=== PATIENT | female | born 1960 | race Caucasian/White ===

== ENCOUNTER → 2016-11-25 | Outpatient (CLI) | payer BC ==
--- NOTE | 2016-11-25 13:38 | KCIC ---
Bilateral lower extremity venous doppler ultrasound History: Leg pain and swelling, elevated d-dimer Comparison: None Findings: Multiple grayscale, color, and duplex spectral analysis sonographic images were acquired of the bilateral lower extremity veins to evaluate for the presence of DVT. There is normal phasicity. Normal compression, color-flow, and augmentation is demonstrated from the bilateral common femoral to the popliteal veins. There is normal color flow of the proximal profunda femoris veins. There is normal color flow of segments of the calf veins. Incidental note is made of right groin lymph node up to 2.4 x 0.8 x 1.9 cm. Impression: 1. There is no evidence of deep venous thrombosis from the bilateral common femoral to popliteal veins. 2. There is nonspecific right groin lymph node although not considered significantly enlarged by axial imaging criteria. Electronically signed by: Renan Grajeda MD (11/25/2016 1:35 PM) [facility]-[id number]
== END | disposition home or self-care (01) ==
LOC: KCIC US 12:19
PROVIDERS: ATTEND Internal Medicine
DX: M79.605 Pain in left leg (principal); M79.604 Pain in right leg; M79.89 Other specified soft tissue disorders
CPT/HCPCS: 93970

== ENCOUNTER → 2018-05-25 | Outpatient (CLI) | payer BC ==
[~2018-05-25] MED LIST: GLIP5TAB10 PO; INSU100I13 SQ; IOHEXOL 240 MG/ML 50ML VIAL. PO ONE; METF500T16 PO; WARF1TAB74 PO
--- NOTE | 2018-05-25 12:22 | KCIC ---
PQRS Compliance statement: One or more of the following individualized dose reduction techniques were utilized for this examination: 1. Automated exposure control. 2. Adjustment of the mA and/or kV according to patient size. 3. Use of iterative reconstruction technique. Indication:Right lower quadrant pain for a few weeks. History of ulcerative colitis. TECHNIQUE: CT abdomen and pelvis without IV contrast with multiplanar reformats. COMPARISON: 12/25/2011 FINDINGS: Limited evaluation of solid abdominal and pelvic organs due to lack of IV contrast. Heart is normal in size. No pericardial or pleural effusion. Clear base. Noncontrast appearance of the liver, spleen, gallbladder, pancreas, right adrenal within normal limits. Left adrenal adenoma measuring 2.5 x 2.5 cm, previously 2.2 x 1.9 cm. Simple cyst in the left kidney measuring 1.3 cm. No nephrolithiasis or hydronephrosis. No enlarged retroperitoneal or pelvic adenopathy. No free pelvic fluid or ascites. Status post hysterectomy. No bowel obstruction. Moderate diffuse colonic stool burden. Normal appendix. Terminal ileum within normal limits. Urinary bladder demonstrates no radiopaque stones. No suspicious bony lesion. IMPRESSION: Limited evaluation of solid abdominal and pelvic organs due to lack of IV contrast. 1. Normal appendix. No bowel obstruction. 2. Slight interval increase in the size of left adrenal adenoma. Electronically signed by: Remi Riggs DO (05/25/2018 12:19 PM) [id number]
== END | disposition home or self-care (01) ==
LOC: KCIC 10:24
PROVIDERS: ATTEND Internal Medicine
DX: D35.02 Benign neoplasm of left adrenal gland (principal); N28.1 Cyst of kidney, acquired; Z90.710 Acquired absence of both cervix and uterus
CPT/HCPCS: 74176; Q9966

== ENCOUNTER 2020-08-18 15:16 | Observation (INO) | payer BC ==
[~2020-08-18] VITALS: Ht 170.2 cm; Wt 115.4 kg
[~2020-08-18 15:16] MED LIST changes: -IOHEXOL 240 MG/ML 50ML VIAL. PO ONE; +WARF1TAB2 PO; -WARF1TAB74 PO
[2020-08-18 15:48] LABS: BASO # 0.1 x10^3/uL (0.0-0.2); BASO % 1 % (0-3); EOS # 0.5 x10^3/uL (0.0-0.7); EOS % 6 % (0-3); HEMATOCRIT 37.7 % (36.0-47.0); HEMOGLOBIN 13.1 g/dL (12.0-15.5); LYMPH # 2.4 x10^3/uL (1.0-4.8); LYMPH % 27 % (24-48); MEAN CORPUSCULAR HEMOGLOBIN 34 pg (25-35); MEAN CORPUSCULAR HGB CONC 35 g/dL (31-37); MEAN CORPUSCULAR VOLUME 97 fL (79-100); MONO # 0.6 x10^3/uL (0.0-1.1); MONO % 7 % (0-9); NEUT # 5.2 x10^3/uL (1.8-7.7); NEUT % 59 % (31-73); PLATELET COUNT 302 x10^3/uL (140-400); RED BLOOD COUNT 3.88 x10^6/uL (3.50-5.40); RED CELL DISTRIBUTION WIDTH 13.1 % (11.5-14.5); WHITE BLOOD COUNT 8.8 x10^3/uL (4.0-11.0)
--- NOTE | 2020-08-18 15:59 | RAD ---
XR CHEST 1V INDICATION: chest pain COMPARISON STUDY: None. FINDINGS: Lungs: Normal lung volume. No pulmonary mass or consolidation. The tracheobronchial tree and hilar st ructures are normal. Pleura: No pleural effusion or pneumothorax. Heart and Mediastinum: Cardiomegaly. The great vessels of the thorax are normal. IMPRESSION: No consolidation. Electronically signed by: Renan Campbell MD (08/18/2020 3:57 PM) [id number]
[2020-08-18 16:05] LABS: CALCIUM 9.1 mg/dL (8.5-10.1); CREATININE 0.7 mg/dL (0.6-1.0); GFR 85.6; POTASSIUM 4.6 mmol/L (3.5-5.1)
[2020-08-18 16:10] LABS: ALBUMIN 3.6 g/dL (3.4-5.0); ALBUMIN/GLOBULIN RATIO 0.9 (1.0-1.7); MAGNESIUM 1.8 mg/dL (1.8-2.4); TOTAL BILIRUBIN 0.5 mg/dL (0.2-1.0); TOTAL PROTEIN 7.7 g/dL (6.4-8.2)
--- NOTE | 2020-08-18 17:01 | EKG ---
[facility] [address] [place] [address] Test Date: 2020-08-18 Test Time: 15:24:57 Pat Name: KATE BARNHART Department: Room: Gender: F Merchant Banker: : 1960 Requested By: EDA ANTUNEZ Order Number: [id number] Reading MD: Leon Brennan Measurements Intervals [place] Rate: 92 P: 8 MO: 132 QRS: 11 QRSD: 74 T: 11 QT: 344 QTc: 430 Interpretive Statements SINUS RHYTHM NORMAL ECG Electronically Signed On 08-20-2020 15:07:28 CDT by Leon Brennan
--- NOTE | 2020-08-18 17:08 | EKG ---
[facility] [address] [place] [address] Test Date: 2020-08-18 Test Time: 15:49:39 Pat Name: KATE BARNHART Department: Room: Gender: F Printing Manager: : 1960 Requested By: LEVON DEMPSEY Order Number: [id number] Reading MD: Leon Brennan Measurements Intervals [place] Rate: 94 P: 2 AK: 140 QRS: 12 QRSD: 70 T: 8 QT: 348 QTc: 435 Interpretive Statements SINUS RHYTHM NORMAL ECG Electronically Signed On 08-20-2020 15:07:17 CDT by Leon Brennan
[2020-08-18 17:57] LABS: BILIRUBIN,URINE NEGATIVE (NEG); COLOR,URINE YELLOW; NITRITE,URINE NEGATIVE (NEG); PROTEIN,URINE NEGATIVE (NEG-TRACE); UROBILINOGEN,URINE 0.2 mg/dL (0.2 mg/dL)
[2020-08-18 18:08] LABS: CLARITY,URINE CLOUDY
[2020-08-18 18:09] LABS: BACTERIA,URINE MANY /HPF (0-FEW); RBC,URINE 20-40 /HPF (0-2)
[2020-08-18 18:10] LABS: WBC,URINE OCC /HPF (0-4)
[2020-08-18 18:24] LABS: D-DIMER 1.22 ug/mlFEU (0.00-0.50)
--- NOTE | 2020-08-18 19:44 | PDOC1 ---
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 She noted this began a little before noon today. She describes it as a sensation that she is falling downward on a rollercoaster and her stomach is rising. She denies any diaphoresis, vomiting, diarrhea, abdominal pain, fever, cough, or back pain. No recent sick contacts or travel. She quit smoking cigarettes 3 months ago and now uses tobacco vaporizer to "wean off" nicotine. She does note she has been having headaches recently, feels it is due to stress and nicotine withdrawal, no hx of seizures. She notes her broth and father both have HTN and AAA. She notes a normal cardiac stress test 10 years ago. Has never had a coronary angiogram. She follows with Dr. Dutta and has been compliant with her medications. 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 EKG at 1524 - appears to be sinus rhythm, rate 92bpm, normal axes, no ST segment or twave abnormalities EKG at 1549 - appears similar normal sinus rhythm rate 94bpm, , normal axes, no ST segment or twave abnormalities by my interpretation Chest radiograph with no acute abnormalities Labs with WBC 8.8, Hb 13.1, platelets 302, Na 141, K 4.6, BUN 13, Cr 0.7, glucose 99, CK 316, troponin 0, d dimer 1.22, INR 3.6 Admitted for further observation on telemetry to [facility]. Past Medical History Cardiovascular: HTN, Hyperlipidemia Pulmonary: Pulmonary embolus Endocrine: Diabetes Past Surgical History Past Surgical History: (x3), Hysterectomy Family History Family History: Coronary Artery Disease, Hypertension, Other (AAA) Social History Smoke: <1 pack per day (VAPES) ALCOHOL: rare Drugs: None Current Medications Current Medications Current Medications Magnesium Sulfate 50 ml @ 25 mls/hr 1X ONCE IV ; Start 08/18/20 at 19:45; Stop 08/18/20 at 21:44 Active Scripts Active Reported Metformin Hcl 500 Mg Tablet 500 Mg PO BIDWMEALS Glipizide 5 Mg Tablet 1 Tab PO BID Lantus Solostar (Insulin Glargine,Hum.rec.anlog) 100 Unit/1 Ml Insuln.pen 30 Unit SQ QHS Coumadin (Warfarin Sodium) 1 Mg Tablet 1 Mg PO DAILY Allergies Allergies: Coded Allergies: codeine (Verified Allergy, Intermediate, 05/25/18) ROS General: No: Chills, Night Sweats, Fatigue, Malaise, Appetite, Other PSYCHOLOGICAL ROS: YES: Concentration difficultie, Depression, Irritablity, Obsessive thoughts, Sleep disturbances; No: Anxiety, Behavioral Disorder, Decreased libido, Disorientation, Hallucinations, Hostility, Memory difficulties, Mood Swings, Physical abuse, Sexual abuse, Suicidal ideation, Other Eyes: No Blurry vision, No Decreased vision, No Double vision, No Dry eyes, No Excessive tearing, No Eye Pain, No Itchy Eyes, No Loss of vision, No Photophobia, No Scotomata, No Uses contacts, No Uses glasses, No Other HEENT: No: Heacaches, Visual Changes, Hearing change, Nasal congestion, Nasal discharge, Oral lesions, Sinus pain, Sore Throat, Epistaxis, Sneezing, Snoring, Tinnitus, Vertigo, Vocal changes, Other ALLERGY AND IMMUNOLOGY: No: Hives, Insect Bite Sensitivity, Itchy/Watery Eyes, Nasal Congestion, Post Nasal Drip, Seasonal Allergies, Other Hematological and Lymphatic: No: Bleeding Problems, Blood Clots, Blood Delgado sfusions, Brusing, Night Sweats, Pallor, Swollen Lymph Nodes, Other ENDOCRINE: No: Breast Changes, Galactorrhea, Hair Pattern Changes, Hot Flashes, Malaise/lethargy, Mood Swings, Palpitations, Polydipsia/polyuria, Skin Changes, Temperature Intolerance, Unexpected Weight Changes, Other Breast: No New/Changing Breast Lumps, No Nipple changes, No Nipple discharge, No Other Respiratory: No: Cough, Hemoptysis, Orthopnea, Pleuritic Pain, Shortness of breath, SOB with excertion, Sputum Changes, Stridor, Tachypnea, Wheezing, Other Cardiovascular: No Chest Pain, No Palpitations, No Orthopnea, No Paroxysmal Noc. Dyspnea, No Edema, No Lt Headedness, No Other Gastrointestinal: Yes Nausea; No Vomiting, No Abdominal Pain, No Diarrhea, No Constipation, No Melena, No H ematochezia, No Other Genitourinary: No Dysuria, No Frequency, No Incontinence, No Hematuria, No Retention, No Discharge, No Urgency, No Pain, No Flank Pain, No Other, No , No , No , No , No , No , No Musculoskeletal: No Gait Disturbance, No Joint Pain, No Joint Stiffness, No Joint Swelling, No Muscle Pain, No Muscular Weakness, No Pain In:, No Swelling In:, No Other Neurological: No Behavorial Changes, No Bowel/Bladder ControlChng, No Confu tresa, No Dizziness, No Gait Disturbance, No Headaches, No Impaired Coord/balance, No Memory Loss, No Numbness/Tingling, No Seizures, No Speech Problems, No Tremors, No Visual Changes, No Weakness, No Other Skin: No Dry Skin, No Eczema, No Hair Changes, No Lumps, No Mole Changes, No Mottling, No Nail Changes, No Pruritus, No Rash, No Skin Lesion Changes, No Oth er, No Acne Physical Exam General: Alert, Oriented X3, Cooperative, mild distress HEENT: Atraumatic, PERRLA, EOMI, Mucous membr. moist/pink Lungs: Clear to auscultation, Normal air movement Heart: S1S2, RRR, no thrills, no rubs, no gallops, no murmurs Abdomen: Normal bowel sounds, Soft, No tenderness, No hepatosplenomegaly, No masses Rectal Exam: not examined Extremities: No clubbing, No cyanosis, No edema, Normal pulses, No tenderness/swelling Skin: No rashes, No breakdown, No significant lesion Neuro: Normal gait, Normal speech, Strength at 5/5 X4 ext, Normal tone, Sensation intact, Cranial nerves 3-12 NL, Reflexes 2+ Psych/Mental Status: Mental status NL, Mood NL Vitals Vitals Vital Signs Date Time Temp Pulse Resp B/P (MAP) Pulse Ox O2 Delivery O2 Flow Rate FiO2 08/18/20 18:19 75 16 179/92 (121) 96 Room Air 08/18/20 15:16 98.7 98.7 Labs Labs Laboratory Tests Test 08/18/20 15:40 08/18/20 17:20 08/18/20 17:56 08/18/20 18:00 White Blood Count 8.8 x10^3/uL (4.0-11.0) Red Blood Count 3.88 x10^6/uL (3.50-5.40) Hemoglobin 13.1 g/dL (12.0-15.5) Hematocrit 37.7 % (36.0-47.0) Mean Corpuscular Volume 97 fL (79-100) Mean Corpuscular Hemoglobin 34 pg (25-35) Mean Corpuscular Hemoglobin Concent 35 g/dL (31-37) Red Cell Distribution Width 13.1 % (11.5-14.5) Platelet Count 302 x10^3/uL (140-400) Neutrophils (%) (Auto) 59 % (31-73) Lymphocytes (%) (Auto) 27 % (24-48) Monocytes (%) (Auto) 7 % (0-9) Eosinophils (%) (Auto) 6 % (0-3) Basophils (%) (Auto) 1 % (0-3) Neutrophils # (Auto) 5.2 x10^3/uL (1.8-7.7) Lymphocytes # (Auto) 2.4 x10^3/uL (1.0-4.8) Monocytes # (Auto) 0.6 x10^3/uL (0.0-1.1) Eosinophils # (Auto) 0.5 x10^3/uL (0.0-0.7) Basophils # (Auto) 0.1 x10^3/uL (0.0-0.2) Sodium Level 141 mmol/L (136-145) Potassium Level 4.6 mmol/L (3.5-5.1) Chloride Level 105 mmol/L (98-107) Carbon Dioxide Level 24 mmol/L (21-32) Anion Gap 12 (6-14) Blood Urea Nitrogen 13 mg/dL (7-20) Creatinine 0.7 mg/dL (0.6-1.0) Estimated GFR (Cockcroft-Gault) 85.6 BUN/Creatinine Ratio 19 (6-20) Glucose Level 99 mg/dL (70-99) Calcium Level 9.1 mg/dL (8.5-10.1) Magnesium Level 1.8 mg/dL (1.8-2.4) Total Bilirubin 0.5 mg/dL (0.2-1.0) Aspartate Amino Transf (AST/SGOT) 26 U/L (15-37) Alanine Aminotransferase (ALT/SGPT) 24 U/L (14-59) Alkaline Phosphatase 86 U/L (46-116) Creatine Kinase 316 U/L (26-192) Creatine Kinase MB (Mass) 1.5 ng/mL (0.0-3.6) Creatine Kinase MB Relative Index 0.5 % (0-4) Troponin I Quantitative < 0.017 ng/mL (0.000-0.055) < 0.017 ng/mL (0.000-0.055) Total Protein 7.7 g/dL (6.4-8.2) Albumin 3.6 g/dL (3.4-5.0) Albumin/Globulin Ratio 0.9 (1.0-1.7) Lipase 347 U/L (73-393) Urine Color Yellow Urine Clarity Cloudy Urine pH 6.0 (<5.0-8.0) Urine Specific [place] 1.015 (1.000-1.030) Urine Protein Negative mg/dL (NEG-TRACE) Urine Glucose (UA) Negative mg/dL (NEG) Urine Ketones (Stick) Negative mg/dL (NEG) Urine Blood Large (NEG) Urine Nitrite Negative (NEG) Urine Bilirubin Negative (NEG) Urine Urobilinogen Dipstick 0.2 mg/dL (0.2 mg/dL) Urine Leukocyte Esterase Trace (NEG) Urine RBC 20-40 /HPF (0-2) Urine WBC Occ /HPF (0-4) Urine Squamous Epithelial Cells Many /LPF Urine Bacteria Many /HPF (0-FEW) Urine Mucus Mod /LPF Prothrombin Time 36.0 SEC (11.7-14.0) Prothromb Time International Ratio 3.6 (0.8-1.1) D-Dimer (Jen) 1.22 ug/mlFEU (0.00-0.50) Laboratory Tests Test 08/18/20 15:40 08/18/20 17:20 08/18/20 17:56 08/18/20 18:00 White Blood Count 8.8 x10^3/uL (4.0-11.0) Red Blood Count 3.88 x10^6/uL (3.50-5.40) Hemoglobin 13.1 g/dL (12.0-15.5) Hematocrit 37.7 % (36.0-47.0) Mean Corpuscular Volume 97 fL (79-100) Mean Corpuscular Hemoglobin 34 pg (25-35) Mean Corpuscular Hemoglobin Concent 35 g/dL (31-37) Red Cell Distribution Width 13.1 % (11.5-14.5) Platelet Count 302 x10^3/uL (140-400) Neutrophils (%) (Auto) 59 % (31-73) Lymphocytes (%) (Auto) 27 % (24-48) Monocytes (%) (Auto) 7 % (0-9) Eosinophils (%) (Auto) 6 % (0-3) Basophils (%) (Auto) 1 % (0-3) Neutrophils # (Auto) 5.2 x10^3/uL (1.8-7.7) Lymphocytes # (Auto) 2.4 x10^3/uL (1.0-4.8) Monocytes # (Auto) 0.6 x10^3/uL (0.0-1.1) Eosinophils # (Auto) 0.5 x10^3/uL (0.0-0.7) Basophils # (Auto) 0.1 x10^3/uL (0.0-0.2) Sodium Level 141 mmol/L (136-145) Potassium Level 4.6 mmol/L (3.5-5.1) Chloride Level 105 mmol/L (98-107) Carbon Dioxide Level 24 mmol/L (21-32) Anion Gap 12 (6-14) Blood Urea Nitrogen 13 mg/dL (7-20) Creatinine 0.7 mg/dL (0.6-1.0) Estimated GFR (Cockcroft-Gault) 85.6 BUN/Creatinine Ratio 19 (6-20) Glucose Level 99 mg/dL (70-99) Calcium Level 9.1 mg/dL (8.5-10.1) Magnesium Level 1.8 mg/dL (1.8-2.4) Total Bilirubin 0.5 mg/dL (0.2-1.0) Aspartate Amino Transf (AST/SGOT) 26 U/L (15-37) Alanine Aminotransferase (ALT/SGPT) 24 U/L (14-59) Alkaline Phosphatase 86 U/L (46-116) Creatine Kinase 316 U/L (26-192) Creatine Kinase MB (Mass) 1.5 ng/mL (0.0-3.6) Creatine Kinase MB Relative Index 0.5 % (0-4) Troponin I Quantitative < 0.017 ng/mL (0.000-0.055) < 0.017 ng/mL (0.000-0.055) Total Protein 7.7 g/dL (6.4-8.2) Albumin 3.6 g/dL (3.4-5.0) Albumin/Globulin Ratio 0.9 (1.0-1.7) Lipase 347 U/L (73-393) Urine Color Yellow Urine Clarity Cloudy Urine pH 6.0 (<5.0-8.0) Urine Specific [place] 1.015 (1.000-1.030) Urine Protein Negative mg/dL (NEG-TRACE) Urine Glucose (UA) Negative mg/dL (NEG) Urine Ketones (Stick) Negative mg/dL (NEG) Urine Blood Large (NEG) Urine Nitrite Negative (NEG) Urine Bilirubin Negative (NEG) Urine Urobilinogen Dipstick 0.2 mg/dL (0.2 mg/dL) Urine Leukocyte Esterase Trace (NEG) Urine RBC 20-40 /HPF (0-2) Urine WBC Occ /HPF (0-4) Urine Squamous Epithelial Cells Many /LPF Urine Bacteria Many /HPF (0-FEW) Urine Mucus Mod /LPF Prothrombin Time 36.0 SEC (11.7-14.0) Prothromb Time International Ratio 3.6 (0.8-1.1) D-Dimer (Jen) 1.22 ug/mlFEU (0.00-0.50) Images Images Chest radiograph: Lungs: Normal lung volume. No pulmonary mass or consolidation. The tracheobronchial tree and hilar structures are normal. Pleura: No pleural effusion or pneumothorax. Heart and Mediastinum: Cardiomegaly. The great vessels of the thorax are normal. IMPRESSION: No consolidation. VTE Prophylaxis Ordered VTE Prophylaxis Devices: No VTE Pharmacological Prophylaxi: Yes Assessment/Plan Assessment/Plan A/P: Chest pressure - described as epigastric rising sensation. Likely GERD/dyspepsia, but with her cardiac risk factors needs to r/o ACS. ASA and NTG given Headaches - long standing on flexeril. With epigastric rising sensation would be concerning for atypical epilepsy presentation, but no history. Likely tension headache due to life stressors. Cont flexeril, gabapentin, they are helping HLD - cont statin HTN - cont meds DM2 with neuropathy - cont lantus, sliding scale, hold metformin in the event contrast may be necessary. 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 Will monitor FEN- ADA diet, npo after midnight PPX - heparin, pepcid CODE - FULL Dispo - observation for chest pain, atypical with high risk ACS Justifications for Admission Other Justification PATRICE ORTIZ MD August 18, 2020 19:44
[2020-08-18] MEDS ORDERED: MAGNESIUM SULFATE 2GM 50 ML IV ONE (19:45)
[2020-08-18 20:10] VITALS: BP 176/88
[2020-08-18] MEDS ORDERED: INSU100I13 SQ ×2 (20:29)
[2020-08-18] MEDS ORDERED: CRESTOR40 MG PO (20:29)
[2020-08-18] MEDS ORDERED: GABA300C18 PO ×2 (20:29)
[2020-08-18] MEDS ORDERED: DULA0.75 SQ (20:29)
[2020-08-18] MEDS ORDERED: WARF10TA40 PO (20:29)
[2020-08-18] MEDS ORDERED: CYCL10TA2 PO (20:29)
[2020-08-18] MEDS ORDERED: ACETAMINOPHEN 325 MG TABLET. PO PRN (20:45)
[2020-08-18] MEDS ORDERED: ONDANSETRON PF 4 MG/2 ML VIAL. IVP PRN (20:45)
[2020-08-18] MEDS ORDERED: NITROGLYCERIN SUBLINGUAL 0.4 MG BOTTLE OF 25. SL PRN (20:45)
[2020-08-18] MEDS ORDERED: INSULIN GLARGINE SYRINGE. SQ SCH (21:00)
[2020-08-18] MEDS ORDERED: ATORVASTATIN CALCIUM 40 MG TABLET. PO SCH (21:00)
[2020-08-18] MEDS ORDERED: GABAPENTIN 300 MG CAPSULE. PO SCH (21:00)
[2020-08-18] MEDS ORDERED: FAMOTIDINE 20 MG TABLET. PO SCH (21:00)
[2020-08-18] MEDS ORDERED: CYCLOBENZAPRINE 10 MG TABLET. PO SCH (21:00)
[2020-08-18] MEDS ORDERED: WARFARIN SODIUM 10 MG PO SCH (21:00)
[2020-08-18] MEDS ORDERED: ASPIRIN 325 MG TABLET PO ONE (21:30)
--- NOTE | 2020-08-18 21:31 | NUR ---
Pharmacy Warfarin Dosing Note S:Pharmacy consulted to assist with anticoagulation therapy started with target INR: 2 -3 O:KATE BARNHART is a 59 year old F with DVT/PE HX BILATERAL DVT/PE LABS: Last INR: 3.6 Last HGB: 13.1 Last HCT: 37.7 Last PLT: 302 Last dose of given on at Previous Regimen: 10 MG/D Vitamin K given: Drug Interaction Changes: Ongoing Drug Interactions: A:INR of 3.6 is above desired range. Target range for this patient is: 2 -3 P: Warfarin dose: Hold Now Bridge Therapy: Next INR due TOMORROW. Pharmacy anticoagulation service will continue to follow. [place] [facility], 08/18/20 [id number]
--- NOTE | 2020-08-18 22:38 | NUR ---
patient arrived to unit at approx 1999 accompanied by ED RN. No complaints of pain at this time. assessment complete. resting comfortably on RA. Pt upset that she has to stay the night. 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 oriented patient to unit. bed in low locked position, call light in reach, reminded patient to call for assistance when needed. Will continue to monitor.
[2020-08-18 22:40] VITALS: BP 120/60
--- NOTE | 2020-08-18 22:59 | ED.ADGEN ---
Past Medical History Past Medical History: Diabetes-Type II, High Cholesterol Additional Past Medical Histor: neuropathy, DVT, PEs, Past Surgical History: (X3), Hysterectomy Smoking Status: Current Every Day Smoker (Vapes daily, quit smoking cigarettes in April 2020) Alcohol Use: Occasionally Drug Use: None General Adult EDM: Chief Complaint: CHEST PAIN HPI: HPI: Patient is a 59 year old female, accompanied by her , who presents emergency department with complaints of intermittent pressure in her chest with shortness of breath that is followed by nausea, weakness, brief vision loss and a sensation of her arms feeling heavy. Patient states she has been having brief episodes of the symptoms since noon today. She denies any diaphoresis, vomiting, diarrhea, abdominal pain, fever, cough, syncope, dizziness, palpitations, or back pain. Patient reports she takes Coumadin on a daily basis due to a previous history of DVTs and PEs. She denies any missed doses of Coumadin recently. She denies any headache, recent ill contacts, numbness, or tingling. Patient states that her brother and her father both due to aortic aneurysm ruptures. Patient denies any previous diagnosis of aortic aneurysm. She reports that recently she has noticed her urine is darker than usual, she attributed that to drinking less fluids than she used to. Patient states she quit smoking cigarettes 3 months ago and now vapes instead of smokes tobacco. She currently denies any discomfort, she states when the pressure comes up is a 2 out of 10 on the pain scale. Her medical history includes high cholesterol, type 2 diabetes, and neuropathy in addition to the blood clots. Review of Systems: Review of Systems: Complete ROS is negative unless otherwise noted in HPI. Allergies: Allergies: Allergies Coded Allergies Type Severity Reaction Last Updated Verified codeine Allergy Intermediate 05/25/18 Yes Physical Exam: PE: See Above Constitutional: Well developed, well nourished, no acute distress, non-toxic ap pearance, obese, appears anxious. [] HENT: Normocephalic, atraumatic, bilateral external ears normal, nose normal. [] Eyes: PERRLA, EOMI, conjunctiva normal, no discharge. [] Neck: Normal range of motion, no stridor. [] Cardiovascular:Heart rate regular rhythm Lungs & Thorax: Respirations even and unlabored, no retractions, no respiratory distress Abdomen: soft, no tenderness, no rebound tenderness, no guarding, no palpable mass Skin: Warm, dry, no erythema, no rash. [] Extremities: No cyanosis, ROM intact, no edema. [] Neurologic: Alert and oriented X 3, normal motor, normal sensory, no focal deficits noted. [] Psychologic: Affect anxious Judgement normal, mood normal. [] Current Patient Data: Labs: Laboratory Tests Test 08/18/20 15:40 08/18/20 17:20 White Blood Count 8.8 x10^3/uL (4.0-11.0) Red Blood Count 3.88 x10^6/uL (3.50-5.40) Hemoglobin 13.1 g/dL (12.0-15.5) Hematocrit 37.7 % (36.0-47.0) Mean Corpuscular Volume 97 fL (79-100) Mean Corpuscular Hemoglobin 34 pg (25-35) Mean Corpuscular Hemoglobin Concent 35 g/dL (31-37) Red Cell Distribution Width 13.1 % (11.5-14.5) Platelet Count 302 x10^3/uL (140-400) Neutrophils (%) (Auto) 59 % (31-73) Lymphocytes (%) (Auto) 27 % (24-48) Monocytes (%) (Auto) 7 % (0-9) Eosinophils (%) (Auto) 6 % (0-3) H Basophils (%) (Auto) 1 % (0-3) Neutrophils # (Auto) 5.2 x10^3/uL (1.8-7.7) Lymphocytes # (Auto) 2.4 x10^3/uL (1.0-4.8) Monocytes # (Auto) 0.6 x10^3/uL (0.0-1.1) Eosinophils # (Auto) 0.5 x10^3/uL (0.0-0.7) Basophils # (Auto) 0.1 x10^3/uL (0.0-0.2) Sodium Level 141 mmol/L (136-145) Potassium Level 4.6 mmol/L (3.5-5.1) Chloride Level 105 mmol/L (98-107) Carbon Dioxide Level 24 mmol/L (21-32) Anion Gap 12 (6-14) Blood Urea Nitrogen 13 mg/dL (7-20) Creatinine 0.7 mg/dL (0.6-1.0) Estimated GFR (Cockcroft-Gault) 85.6 BUN/Creatinine Ratio 19 (6-20) Glucose Level 99 mg/dL (70-99) Calcium Level 9.1 mg/dL (8.5-10.1) Magnesium Level 1.8 mg/dL (1.8-2.4) Total Bilirubin 0.5 mg/dL (0.2-1.0) Aspartate Amino Transferase (AST) 26 U/L (15-37) Alanine Aminotransferase (ALT) 24 U/L (14-59) Alkaline Phosphatase 86 U/L (46-116) Creatine Kinase 316 U/L (26-192) H Creatine Kinase MB (Mass) 1.5 ng/mL (0.0-3.6) Creatine Kinase MB Relative Index 0.5 % (0-4) Troponin I Quantitative < 0.017 ng/mL (0.000-0.055) Total Protein 7.7 g/dL (6.4-8.2) Albumin 3.6 g/dL (3.4-5.0) Albumin/Globulin Ratio 0.9 (1.0-1.7) L Lipase 347 U/L (73-393) Urine Color Yellow Urine Clarity Cloudy Urine pH 6.0 (<5.0-8.0) Urine Specific [place] 1.015 (1.000-1.030) Urine Protein Negative mg/dL (NEG-TRACE) Urine Glucose (UA) Negative mg/dL (NEG) Urine Ketones (Stick) Negative mg/dL (NEG) Urine Blood Large (NEG) Urine Nitrite Negative (NEG) Urine Bilirubin Negative (NEG) Urine Urobilinogen Dipstick 0.2 mg/dL (0.2 mg/dL) Urine Leukocyte Esterase Trace (NEG) Urine RBC 20-40 /HPF (0-2) Urine WBC Occ /HPF (0-4) Urine Squamous Epithelial Cells Many /LPF Urine Bacteria Many /HPF (0-FEW) Urine Mucus Mod /LPF Laboratory Tests 08/18/20 15:40 Laboratory Tests 08/18/20 15:40 Vital Signs: Vital Signs Date Time Temp Pulse Resp B/P (MAP) Pulse Ox O2 Delivery O2 Flow Rate FiO2 08/18/20 17:19 82 16 174/103 (126) 96 Room Air 08/18/20 15:16 98.7 98.7 EKG: EK-sinus rhythm, rate 92, no STEMI, read by Dr. Rodriguez 1549-[id number] rhythm rate 94, no STEMI, read by Dr. Rodriguez [] Heart Score: C/O Chest Pain: Yes HEART Score for Chest Pain: HEART Score for Chest Pain Response (Comments) Value History Moderately Suspicious 1 ECG Normal 0 Age >45 - < 65 1 Risk Factors >3 Risk Factors or Hx CAD 2 Troponin < Normal Limit 0 Total 4 Risk Factors: Risk Factors: DM, Current or recent (<one month) smoker, HTN, HLP, family history of CAD, obesity. Risk Scores: Score 0 - 3: 2.5% MACE over next 6 weeks - Discharge Home Score 4 - 6: 20.3% MACE over next 6 weeks - Admit for Clinical Observation Score 7 - 10: 72.7% MACE over next 6 weeks - Early Invasive Strategies Radiology/Procedures: Radiology/Procedures: PROCEDURE: CHEST AP ONLY XR CHEST 1V INDICATION: chest pain COMPARISON STUDY: None. FINDINGS: Lungs: Normal lung volume. No pulmonary mass or consolidation. The tracheobronchial tree and hilar structures are normal. Pleura: No pleural effusion or pneumothorax. Heart and Mediastinum: Cardiomegaly. The great vessels of the thorax are normal. IMPRESSION: No consolidation. Electronically signed by: Renan Campbell MD (08/18/2020 3:57 PM) [id number] [] Course & Med Decision Making: Course & Med Decision Making Pertinent Labs and Imaging studies reviewed. (See chart for details) [id number] with Dr. Roy who is the admitting physician, and care was assumed following discussion of patient. Will admit patient as observation status for chest pain. Patient's vital signs stable. Patient remains afebrile, appears nontoxic, respirations even and unlabored. Patient will be admitted to the CVC floor. Patient's case and plan of care also discussed with Dr. Rodriguez [] Marcello Disclaimer: Marcello Disclaimer: This electronic medical record was generated, in whole or in part, using a voice recognition dictation system. Departure Departure Impression: Primary Impression: Chest pain Disposition: ADMITTED INPATIENT Condition: STABLE Referrals: ATA ARTHUR MD (PCP) EDA [employer] August 18, 2020 22:59
[2020-08-18] MEDS ORDERED: DEXTROSE 50% 25 GM / 50ML DISP.SYRIN. IV PRN (23:45)
[2020-08-18] MEDS ORDERED: ZOLPIDEM 5 MG TABLET. PO PRN (23:45)
[2020-08-19 02:45] VITALS: BP 118/66
[2020-08-19 07:00] VITALS: BP 118/67
[2020-08-19] MEDS ORDERED: INSULIN LISPRO 300 UNITS/3 ML VIAL. SQ SCH (08:00)
[2020-08-19] MEDS ORDERED: ASPIRIN 325 MG TABLET PO SCH (08:00)
[2020-08-19] MEDS ORDERED: GABAPENTIN 300 MG CAPSULE. PO SCH (09:00)
--- NOTE | 2020-08-19 09:26 | PDOC ---
PROGRESS NOTES Date of Service: DATE: 08/19/20 TIME: 09:25 Chief Complaint Chief Complaint VTE Prophylaxis Ordered VTE Prophylaxis Devices: No VTE Pharmacological Prophylaxi: Yes Assessment/Plan Assessment/Plan A/P: Chest pressure - described as epigastric rising sensation. Likely GERD/dyspepsia, but with her cardiac risk factors needs to r/o ACS. ASA and NTG given Headaches - long standing on flexeril. With epigastric rising sensation would be concerning for atypical epilepsy presentation, but no history. Likely tension headache due to life stressors. Cont flexeril, gabapentin, they are helping HLD - cont statin HTN - cont meds DM2 with neuropathy - cont lantus, sliding scale, hold metformin in the event contrast may be necessary. 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 Will monitor Current Every Day Smoker (Vapes daily, quit smoking cigarettes in April 2020) plan 08-19 FEN- ADA diet, npo after midnight PPX - heparin, pepcid CODE - FULL Dispo - observation for chest pain, atypical with high risk ACS fasting lipids cardiology consult patient refuses to stay to see Cardiology, until noon, INSISTS on leaving now, but agreees to call her PCP CAREN, WILL LEAVE AMA, her brother had CAD with stents d/c planning 34 min Justifications for Admission Justifications for Admission Other Justification History of Present Illness History of Present Illness Identification/Chief Complaint Chief Complaint Chest pain Source Source: Patient History of Present Illness History of Present Illness Ms Song is a 59 year old female w/ PMHx HLD, HTN, DM2 with neuropathy, prior LLE DVT and bilateral PE on warfarin presents to ED, accompanied by her , c/o intermittent pressure in her chest with shortness of breath that is followed by nausea, weakness, brief vision loss and a sensation of weakness. She noted this began a little before noon today. She describes it as a sensation that she is falling downward on a rollercoaster and her stomach is rising. She denies any diaphoresis, vomiting, diarrhea, abdominal pain, fever, cough, or back pain. No recent sick contacts or travel. She quit smoking cigarettes 3 months ago and now uses tobacco vaporizer to "wean off" nicotine. She does note she has been having headaches recently, feels it is due to stress and nicotine withdrawal, no hx of seizures. She notes her broth and father both have HTN and AAA. She notes a normal cardiac stress test 10 years ago. Has never had a coronary angiogram. She follows with Dr. Dutta and has been compliant with her medications. 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 EKG at 1524 - appears to be sinus rhythm, rate 92bpm, normal axes, no ST segment or twave abnormalities EKG at 1549 - appears similar normal sinus rhythm rate 94bpm, , normal axes, no ST segment or twave abnormalities by my interpretation Chest radiograph with no acute abnormalities Labs with WBC 8.8, Hb 13.1, platelets 302, Na 141, K 4.6, BUN 13, Cr 0.7, glucose 99, CK 316, troponin 0, d dimer 1.22, INR 3.6 Admitted for further observation on telemetry to [facility]. Past Medical History Cardiovascular: HTN, Hyperlipidemia Pulmonary: Pulmonary embolus Endocrine: Diabetes Past Surgical History Past Surgical History: (x3), Hysterectomy Family History Family History: Coronary Artery Disease, Hypertension, Other (AAA) Social History Smoke: <1 pack per day (VAPES) ALCOHOL: rare Drugs: None Current Medications Current Medications Current Medications Magnesium Sulfate 50 ml @ 25 mls/hr 1X ONCE IV ; Start 08/18/20 at 19:45; Stop 08/18/20 at 21:44 Active Scripts Active Reported Metformin Hcl 500 Mg Tablet 500 Mg PO BIDWMEALS Glipizide 5 Mg Tablet 1 Tab PO BID Lantus Solostar (Insulin Glargine,Hum.rec.anlog) 100 Unit/1 Ml Insuln.pen 30 Unit SQ QHS Coumadin (Warfarin Sodium) 1 Mg Tablet 1 Mg PO DAILY Allergies Allergies: Coded Allergies: codeine (Verified Allergy, Intermediate, 05/25/18) ROS General: No: Chills, Night Sweats, Fatigue, Malaise, Appetite, Other PSYCHOLOGICAL ROS: YES: Concentration difficultie, Depression, Irritablity, Obsessive thoughts, Sleep disturbances; No: Anxiety, Behavioral Disorder, Decreased libido, Disorientation, Hallu cinations, Hostility, Memory difficulties, Mood Swings, Physical abuse, Sexual abuse, Suicidal ideation, Other Eyes: No Blurry vision, No Decreased vision, No Double vision, No Dry eyes, No Excessive tearing, No Eye Pain, No Itchy Eyes, No Loss of vision, No Photophobia, No Scotomata, No Uses contacts, No Uses glasses, No Other HEENT: No: Heacaches, Visual Changes, Hearing change, Nasal congestion, Nasal discharge, Oral lesions, Sinus pain, Sore Throat, Epistaxis, Sneezing, Snoring, Tinnitus, Vertigo, Vocal changes, Other ALLERGY AND IMMUNOLOGY: No: Hives, Insect Bite Sensitivity, Itchy/Watery Eyes, Nasal Congestion, Post Nasal Drip, Seasonal Allergies, Other Hematological and Lymphatic: No: Bleeding Problems, Blood Clots, Blood Transfusions, Brusing, Night Sweats, Pallor, Swollen Lymph Nodes, Other ENDOCRINE: No: Breast Changes, Galactorrhea, Hair Pattern Changes, Hot Flashes, Malaise/lethargy, Mood Swings, Palpitations, Polydipsia/polyuria, Skin Changes, Temperature Intolerance, Unexpected Weight Changes, Other Breast: No New/Changing Breast Lumps, No Nipple changes, No Nipple discharge, No Other Respiratory: No: Cough, Hemoptysis, Orthopnea, Pleuritic Pain, Shortness of breath, SOB with excertion, Sputum Changes, Stridor, Tachypnea, Wheezing, Other Cardiovascular: No Chest Pain, No Palpitations, No Orthopnea, No Paroxysmal Noc. Dyspnea, No Edema, No Lt Headedness, No Other Gastrointestinal: Yes Nausea; No Vomiting, No Abdominal Pain, No Diarrhea, No Constipation, No Melena, No Hematochezia, No Other Genitourinary: No Dysuria, No Frequency, No Incontinence, No Hematuria, No Retention, No Discharge, No Urgency, No Pain, No Flank Pain, No Other, No , No , No , No , No , No , No Musculoskeletal: No Gait Disturbance, No Joint Pain, No Joint Stiffness, No Joint Swelling, No Muscle Pain, No Muscular Weakness, No Pain In:, No Swelling In:, No Other Neurological: No Behavorial Changes, No Bowel/Bladder ControlChng, No Confusion, No Dizziness, No Gait Disturbance, No Headaches, No Impaired Coord/balance, No Memory Loss, No Numbness/Tingling, No Seizures, No Speech Problems, No Tremors, No Visual Changes, No Weakness, No Other Skin: No Dry Skin, No Eczema, No Hair Changes, No Lumps, No Mole Changes, No Mottling, No Nail Changes, No Pruritus, No Rash, No Skin Lesion Changes, No Other, No Acne Vitals Vitals Vital Signs Date Time Temp Pulse Resp B/P (MAP) Pulse Ox O2 Delivery O2 Flow Rate FiO2 08/19/20 07:00 97.9 72 18 118/67 (84) 98 Room Air 97.9 Physical Exam General: Alert, Oriented X3, Cooperative, No acute distress Heart: Regular rate, No murmurs, Gallops Lungs: Clear Abdomen: Normal bowel sounds, Soft, No tenderness, No hepatosplenomegaly, No masses Extremities: No clubbing, No cyanosis, No edema, Normal pulses, No tenderness/swelling Skin: No rashes, No breakdown, No significant lesion Labs LABS PQRS Compliance statement: One or more of the following individualized dose reduction techniques were utilized for this examination: 1. Automated exposure control. 2. Adjustment of the mA and/or kV according to patient size. 3. Use of iterative reconstruction technique. Indication:Right lower quadrant pain for a few weeks. History of ulcerative colitis. TECHNIQUE: CT abdomen and pelvis without IV contrast with multiplanar reformats. COMPARISON: 12/25/2011 FINDINGS: Limited evaluation of solid abdominal and pelvic organs due to lack of IV contrast. Heart is normal in size. No pericardial or pleural effusion. Clear base. Noncontrast appearance of the liver, spleen, gallbladder, pancreas, right adrenal within normal limits. Left adrenal adenoma measuring 2.5 x 2.5 cm, previously 2.2 x 1.9 cm. Simple cyst in the left kidney measuring 1.3 cm. No nephrolithiasis or hydronephrosis. No enlarged retroperitoneal or pelvic adenopathy. No free pelvic fluid or ascites. Status post hysterectomy. No bowel obstruction. Moderate diffuse colonic stool burden. Normal appendix. Terminal ileum within normal limits. Urinary bladder demonstrates no radiopaque stones. No suspicious bony lesion. IMPRESSION: Limited evaluation of solid abdominal and pelvic organs due to lack of IV contrast. 1. Normal appendix. No bowel obstruction. 2. Slight interval increase in the size of left adrenal adenoma. Electronically signed by: Remi Riggs DO (05/25/2018 12:19 PM) [id number] DICTATED and SIGNED BY: REMI RIGGS DO DATE: 05/25/18 1214 XR CHEST 1V INDICATION: chest pain COMPARISON STUDY: None. FINDINGS: Lungs: Normal lung volume. No pulmonary mass or consolidation. The tracheobronchial tree and hilar structures are normal. Pleura: No pleural effusion or pneumothorax. Heart and Mediastinum: Cardiomegaly. The great vessels of the thorax are normal. IMPRESSION: No consolidation. Electronically signed by: Awilda Campbell MD (08/18/2020 3:57 PM) [id number] DICTATED and SIGNED BY: AWILDA CAMPBELL MD DATE: 08/18/20 [id number] Laboratory Tests Test 08/18/20 15:40 08/18/20 17:20 08/18/20 17:56 08/18/20 18:00 White Blood Count 8.8 x10^3/uL (4.0-11.0) Red Blood Count 3.88 x10^6/uL (3.50-5.40) Hemoglobin 13.1 g/dL (12.0-15.5) Hematocrit 37.7 % (36.0-47.0) Mean Corpuscular Volume 97 fL (79-100) Mean Corpuscular Hemoglobin 34 pg (25-35) Mean Corpuscular Hemoglobin Concent 35 g/dL (31-37) Red Cell Distribution Width 13.1 % (11.5-14.5) Platelet Count 302 x10^3/uL (140-400) Neutrophils (%) (Auto) 59 % (31-73) Lymphocytes (%) (Auto) 27 % (24-48) Monocytes (%) (Auto) 7 % (0-9) Eosinophils (%) (Auto) 6 % (0-3) Basophils (%) (Auto) 1 % (0-3) Neutrophils # (Auto) 5.2 x10^3/uL (1.8-7.7) Lymphocytes # (Auto) 2.4 x10^3/uL (1.0-4.8) Monocytes # (Auto) 0.6 x10^3/uL (0.0-1.1) Eosinophils # (Auto) 0.5 x10^3/uL (0.0-0.7) Basophils # (Auto) 0.1 x10^3/uL (0.0-0.2) Sodium Level 141 mmol/L (136-145) Potassium Level 4.6 mmol/L (3.5-5.1) Chloride Level 105 mmol/L (98-107) Carbon Dioxide Level 24 mmol/L (21-32) Anion Gap 12 (6-14) Blood Urea Nitrogen 13 mg/dL (7-20) Creatinine 0.7 mg/dL (0.6-1.0) Estimated GFR (Cockcroft-Gault) 85.6 BUN/Creatinine Ratio 19 (6-20) Glucose Level 99 mg/dL (70-99) Calcium Level 9.1 mg/dL (8.5-10.1) Magnesium Level 1.8 mg/dL (1.8-2.4) Total Bilirubin 0.5 mg/dL (0.2-1.0) Aspartate Amino Transf (AST/SGOT) 26 U/L (15-37) Alanine Aminotransferase (ALT/SGPT) 24 U/L (14-59) Alkaline Phosphatase 86 U/L (46-116) Creatine Kinase 316 U/L (26-192) Creatine Kinase MB (Mass) 1.5 ng/mL (0.0-3.6) Creatine Kinase MB Relative Index 0.5 % (0-4) Troponin I Quantitative < 0.017 ng/mL (0.000-0.055) < 0.017 ng/mL (0.000-0.055) Total Protein 7.7 g/dL (6.4-8.2) Albumin 3.6 g/dL (3.4-5.0) Albumin/Globulin Ratio 0.9 (1.0-1.7) Lipase 347 U/L (73-393) Urine Color Yellow Urine Clarity Cloudy Urine pH 6.0 (<5.0-8.0) Urine Specific [place] 1.015 (1.000-1.030) Urine Protein Negative mg/dL (NEG-TRACE) Urine Glucose (UA) Negative mg/dL (NEG) Urine Ketones (Stick) Negative mg/dL (NEG) Urine Blood Large (NEG) Urine Nitrite Negative (NEG) Urine Bilirubin Negative (NEG) Urine Urobilinogen Dipstick 0.2 mg/dL (0.2 mg/dL) Urine Leukocyte Esterase Trace (NEG) Urine RBC 20-40 /HPF (0-2) Urine WBC Occ /HPF (0-4) Urine Squamous Epithelial Cells Many /LPF Urine Bacteria Many /HPF (0-FEW) Urine Mucus Mod /LPF Prothrombin Time 36.0 SEC (11.7-14.0) Prothromb Time International Ratio 3.6 (0.8-1.1) D-Dimer (Jen) 1.22 ug/mlFEU (0.00-0.50) Test 08/18/20 21:25 08/19/20 00:40 08/19/20 07:28 Glucose (Fingerstick) 171 mg/dL (70-99) 126 mg/dL (70-99) Troponin I Quantitative < 0.017 ng/mL (0.000-0.055) Assessment and Plan Assessmemt and Plan Problems Medical Problems: (1) Chest pain Status: Acute Comment Review of Relevant I have reviewed the following items lorna (where applicable) has been applied. Labs Laboratory Tests Test 08/18/20 15:40 08/18/20 17:20 08/18/20 17:56 08/18/20 18:00 White Blood Count 8.8 x10^3/uL (4.0-11.0) Red Blood Count 3.88 x10^6/uL (3.50-5.40) Hemoglobin 13.1 g/dL (12.0-15.5) Hematocrit 37.7 % (36.0-47.0) Mean Corpuscular Volume 97 fL (79-100) Mean Corpuscular Hemoglobin 34 pg (25-35) Mean Corpuscular Hemoglobin Concent 35 g/dL (31-37) Red Cell Distribution Width 13.1 % (11.5-14.5) Platelet Count 302 x10^3/uL (140-400) Neutrophils (%) (Auto) 59 % (31-73) Lymphocytes (%) (Auto) 27 % (24-48) Monocytes (%) (Auto) 7 % (0-9) Eosinophils (%) (Auto) 6 % (0-3) Basophils (%) (Auto) 1 % (0-3) Neutrophils # (Auto) 5.2 x10^3/uL (1.8-7.7) Lymphocytes # (Auto) 2.4 x10^3/uL (1.0-4.8) Monocytes # (Auto) 0.6 x10^3/uL (0.0-1.1) Eosinophils # (Auto) 0.5 x10^3/uL (0.0-0.7) Basophils # (Auto) 0.1 x10^3/uL (0.0-0.2) Sodium Level 141 mmol/L (136-145) Potassium Level 4.6 mmol/L (3.5-5.1) Chloride Level 105 mmol/L (98-107) Carbon Dioxide Level 24 mmol/L (21-32) Anion Gap 12 (6-14) Blood Urea Nitrogen 13 mg/dL (7-20) Creatinine 0.7 mg/dL (0.6-1.0) Estimated GFR (Cockcroft-Gault) 85.6 BUN/Creatinine Ratio 19 (6-20) Glucose Level 99 mg/dL (70-99) Calcium Level 9.1 mg/dL (8.5-10.1) Magnesium Level 1.8 mg/dL (1.8-2.4) Total Bilirubin 0.5 mg/dL (0.2-1.0) Aspartate Amino Transf (AST/SGOT) 26 U/L (15-37) Alanine Aminotransferase (ALT/SGPT) 24 U/L (14-59) Alkaline Phosphatase 86 U/L (46-116) Creatine Kinase 316 U/L (26-192) Creatine Kinase MB (Mass) 1.5 ng/mL (0.0-3.6) Creatine Kinase MB Relative Index 0.5 % (0-4) Troponin I Quantitative < 0.017 ng/mL (0.000-0.055) < 0.017 ng/mL (0.000-0.055) Total Protein 7.7 g/dL (6.4-8.2) Albumin 3.6 g/dL (3.4-5.0) Albumin/Globulin Ratio 0.9 (1.0-1.7) Lipase 347 U/L (73-393) Urine Color Yellow Urine Clarity Cloudy Urine pH 6.0 (<5.0-8.0) Urine Specific [place] 1.015 (1.000-1.030) Urine Protein Negative mg/dL (NEG-TRACE) Urine Glucose (UA) Negative mg/dL (NEG) Urine Ketones (Stick) Negative mg/dL (NEG) Urine Blood Large (NEG) Urine Nitrite Negative (NEG) Urine Bilirubin Negative (NEG) Urine Urobilinogen Dipstick 0.2 mg/dL (0.2 mg/dL) Urine Leukocyte Esterase Trace (NEG) Urine RBC 20-40 /HPF (0-2) Urine WBC Occ /HPF (0-4) Urine Squamous Epithelial Cells Many /LPF Urine Bacteria Many /HPF (0-FEW) Urine Mucus Mod /LPF Prothrombin Time 36.0 SEC (11.7-14.0) Prothromb Time International Ratio 3.6 (0.8-1.1) D-Dimer (Jen) 1.22 ug/mlFEU (0.00-0.50) Test 08/18/20 21:25 08/19/20 00:40 08/19/20 07:28 Glucose (Fingerstick) 171 mg/dL (70-99) 126 mg/dL (70-99) Troponin I Quantitative < 0.017 ng/mL (0.000-0.055) Laboratory Tests Test 08/18/20 15:40 08/18/20 17:20 08/18/20 17:56 08/18/20 18:00 White Blood Count 8.8 x10^3/uL (4.0-11.0) Red Blood Count 3.88 x10^6/uL (3.50-5.40) Hemoglobin 13.1 g/dL (12.0-15.5) Hematocrit 37.7 % (36.0-47.0) Mean Corpuscular Volume 97 fL (79-100) Mean Corpuscular Hemoglobin 34 pg (25-35) Mean Corpuscular Hemoglobin Concent 35 g/dL (31-37) Red Cell Distribution Width 13.1 % (11.5-14.5) Platelet Count 302 x10^3/uL (140-400) Neutrophils (%) (Auto) 59 % (31-73) Lymphocytes (%) (Auto) 27 % (24-48) Monocytes (%) (Auto) 7 % (0-9) Eosinophils (%) (Auto) 6 % (0-3) Basophils (%) (Auto) 1 % (0-3) Neutrophils # (Auto) 5.2 x10^3/uL (1.8-7.7) Lymphocytes # (Auto) 2.4 x10^3/uL (1.0-4.8) Monocytes # (Auto) 0.6 x10^3/uL (0.0-1.1) Eosinophils # (Auto) 0.5 x10^3/uL (0.0-0.7) Basophils # (Auto) 0.1 x10^3/uL (0.0-0.2) Sodium Level 141 mmol/L (136-145) Potassium Level 4.6 mmol/L (3.5-5.1) Chloride Level 105 mmol/L (98-107) Carbon Dioxide Level 24 mmol/L (21-32) Anion Gap 12 (6-14) Blood Urea Nitrogen 13 mg/dL (7-20) Creatinine 0.7 mg/dL (0.6-1.0) Estimated GFR (Cockcroft-Gault) 85.6 BUN/Creatinine Ratio 19 (6-20) Glucose Level 99 mg/dL (70-99) Calcium Level 9.1 mg/dL (8.5-10.1) Magnesium Level 1.8 mg/dL (1.8-2.4) Total Bilirubin 0.5 mg/dL (0.2-1.0) Aspartate Amino Transf (AST/SGOT) 26 U/L (15-37) Alanine Aminotransferase (ALT/SGPT) 24 U/L (14-59) Alkaline Phosphatase 86 U/L (46-116) Creatine Kinase 316 U/L (26-192) Creatine Kinase MB (Mass) 1.5 ng/mL (0.0-3.6) Creatine Kinase MB Relative Index 0.5 % (0-4) Troponin I Quantitative < 0.017 ng/mL (0.000-0.055) < 0.017 ng/mL (0.000-0.055) Total Protein 7.7 g/dL (6.4-8.2) Albumin 3.6 g/dL (3.4-5.0) Albumin/Globulin Ratio 0.9 (1.0-1.7) Lipase 347 U/L (73-393) Urine Color Yellow Urine Clarity Cloudy Urine pH 6.0 (<5.0-8.0) Urine Specific [place] 1.015 (1.000-1.030) Urine Protein Negative mg/dL (NEG-TRACE) Urine Glucose (UA) Negative mg/dL (NEG) Urine Ketones (Stick) Negative mg/dL (NEG) Urine Blood Large (NEG) Urine Nitrite Negative (NEG) Urine Bilirubin Negative (NEG) Urine Urobilinogen Dipstick 0.2 mg/dL (0.2 mg/dL) Urine Leukocyte Esterase Trace (NEG) Urine RBC 20-40 /HPF (0-2) Urine WBC Occ /HPF (0-4) Urine Squamous Epithelial Cells Many /LPF Urine Bacteria Many /HPF (0-FEW) Urine Mucus Mod /LPF Prothrombin Time 36.0 SEC (11.7-14.0) Prothromb Time International Ratio 3.6 (0.8-1.1) D-Dimer (Jen) 1.22 ug/mlFEU (0.00-0.50) Test 08/18/20 21:25 08/19/20 00:40 08/19/20 07:28 Glucose (Fingerstick) 171 mg/dL (70-99) 126 mg/dL (70-99) Troponin I Quantitative < 0.017 ng/mL (0.000-0.055) Medications Current Medications Magnesium Sulfate 50 ml @ 25 mls/hr 1X ONCE IV Last administered on 08/18/20at 21:32; Start 08/18/20 at 19:45; Stop 08/18/20 at 21:44; Status DC Cyclobenzaprine HCl (Flexeril) 10 mg HS PO Last administered on 08/18/20at 21:23; Start 08/18/20 at 21:00 Gabapentin (Neurontin) 300 mg DAILY PO ; Start 08/19/20 at 09:00 Gabapentin (Neurontin) 600 mg HS PO Last administered on 08/18/20at 21:23; Start 08/18/20 at 21:00 Insulin Glargine (Lantus Syringe) 16 unit QHS SQ Last administered on 08/18/20at 21:30; Start 08/18/20 at 21:00 Atorvastatin Calcium (Lipitor) 80 mg QHS PO Last administered on 08/18/20at 21:23; Start 08/18/20 at 21:00 Non-Formulary Medication (Warfarin Sodium ) 10 mg HS PO ; Start 08/18/20 at 21:00; Status UNV Acetaminophen (Tylenol) 650 mg PRN Q6HRS PRN PO MILD PAIN / TEMP > 100.3'F Last administered on 08/18/20at 21:24; Start 08/18/20 at 20:45 Ondansetron HCl (Zofran) 4 mg PRN Q4HRS PRN IVP NAUSEA/VOMITING; Start 08/18/20 at 20:45 Famotidine (Pepcid) 20 mg BID PO Last administered on 08/18/20at 21:23; Start 08/18/20 at 21:00 Aspirin ([employer] Aspirin) 325 mg 1X ONCE PO Last administered on 08/18/20at 21:23; Start 08/18/20 at 21:30; Stop 08/18/20 at 21:31; Status DC Aspirin ([employer] Aspirin) 325 mg DAILYWBKFT PO ; Start 08/19/20 at 08:00 Nitroglycerin (Nitrostat) 0.4 mg PRN Q5MIN PRN SL CHEST PAIN; Start 08/18/20 at 20:45 Warfarin Sodium (Coumadin Per Pharmacy) 1 each PRN DAILY PRN MC SEE COMMENTS Last administered on 08/18/20at 21:28; Start 08/18/20 at 21:30 Warfarin Sodium (Coumadin - No Dose Today) 1 each 1X WARF ONCE MC Last administered on 08/18/20at 21:25; Start 08/18/20 at 21:25; Stop 08/18/20 at 21:26; Status DC Insulin Human Lispro (HumaLOG) 0-9 UNITS TIDWMEALS SQ ; Start 08/19/20 at 08:00 Dextrose (Dextrose 50%-Water Syringe) 12.5 gm PRN Q15MIN PRN IV SEE COMMENTS; Start 08/18/20 at 23:45 Zolpidem Tartrate (Ambien) 5 mg PRN QHS PRN PO INSOMNIA; Start 08/18/20 at 23:45 Active Scripts Active Reported Trulicity (Dulaglutide) 0.75 Mg/0.5 Ml Pen.injctr Unknown Dose SQ WEEKLY Gabapentin (Gabapentin) 300 Mg Capsule 600 Mg PO HS Gabapentin (Gabapentin) 300 Mg Capsule 300 Mg PO DAILY Cyclobenzaprine Hcl 10 Mg Tablet 10 Mg PO HS Crestor (Rosuvastatin Calcium) 40 Mg Tablet 40 Mg PO HS Lantus Solostar (Insulin Glargine,Hum.rec.anlog) 100 Unit/1 Ml Insuln.pen 10 Unit SQ DAILYAC Lantus Solostar (Insulin Glargine,Hum.rec.anlog) 100 Unit/1 Ml Insuln.pen 16 Unit SQ HS Warfarin Sodium 10 Mg Tablet 10 Mg PO HS Metformin Hcl 500 Mg Tablet 500 Mg PO BIDWMEALS Vitals/I & O Vital Sign - Last 24 Hours 08/18/20 08/18/20 08/18/20 08/18/20 15:16 16:01 16:31 17:19 Temp 98.7 98.7 Pulse 88 85 87 82 Resp 16 16 16 16 B/P (MAP) 174/79 (110) 148/79 (102) 165/93 (117) 174/103 (126) Pulse Ox 96 96 96 96 O2 Delivery Room Air Room Air Room Air Room Air 08/18/20 08/18/20 08/18/20 08/18/20 17:49 18:19 18:49 19:19 Pulse 89 75 73 85 Resp 16 16 16 16 B/P (MAP) 177/89 (118) 179/92 (121) 186/92 (123) 165/79 (107) Pulse Ox 96 96 96 96 O2 Delivery Room Air Room Air Room Air Room Air 08/18/20 08/18/20 08/18/20 08/18/20 19:49 20:10 21:58 22:40 Temp 97.7 98.2 97.7 98.2 Pulse 72 84 83 Resp 16 20 18 B/P (MAP) 172/79 (110) 176/88 (117) 120/60 (80) Pulse Ox 96 99 97 O2 Delivery Room Air Room Air Room Air Room Air 08/19/20 08/19/20 02:45 07:00 Temp 97.8 97.9 97.8 97.9 Pulse 66 72 Resp 18 18 B/P (MAP) 118/66 (83) 118/67 (84) Pulse Ox 95 98 O2 Delivery Room Air Room Air Intake and Output0 08/18/20 08/18/20 08/19/20 15:00 23:00 07:00 Intake Total 350 ml Balance 350 ml Justicifation of Admission Dx: Justifications for Admission: Justification of Admission Dx: Yes Comments: unstable angina JAZZMINE MELENDREZ MD August 19, 2020 09:25
--- NOTE | 2020-08-19 10:01 | NUR ---
RN called to room. Patient stated she was ready to leave, upset she was still here and "nothing was happening this morning". RN phoned Dr. Soliz; Dr. Soliz straight to floor to see patient. Patient spoke with Dr. Soliz, Dr. Soliz advised patient that cardiology was coming to see her today. Patient advised RN that she would not stay any longer. RN brought AMA paperwork to patient, patient signed. IV out, monitor at nurses station. RN phoned Dr. Hayes to advise of patient's decision as well. RN advised patient to call when ride arrived at hospital.
--- NOTE | 2020-08-19 10:02 | PDOC3 ---
Discharge Summary Date of Admission: August 18, 2020 Date of Discharge: August 19, 2020 Follow-Up: Other (left ama) Admitting Diagnosis comment: Chief Complaint Chief Complaint VTE Prophylaxis Ordered VTE Prophylaxis Devices: No VTE Pharmacological Prophylaxi: Yes CONSULTS CARDIOLOGY PENDING COMPLICATIONS LEFT AMA D/C CONDITION GUARDED D/C F/U BY PHONE WITH PCP TOMORROW , MAY RETURN TO ER WITH SYMPTOMS DISCHARGE DX Assessment/Plan A/P: Chest pressure - described as epigastric rising sensation. Likely GERD/dyspepsia, but with her cardiac risk factors needs to r/o ACS. ASA and NTG given Headaches - long standing on flexeril. With epigastric rising sensation would be concerning for atypical epilepsy presentation, but no history. Likely tension headache due to life stressors. Cont flexeril, gabapentin, they are helping HLD - cont statin HTN - cont meds DM2 with neuropathy - cont lantus, sliding scale, hold metformin in the event contrast may be necessary. 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 Will monitor Current Every Day Smoker (Vapes daily, quit smoking cigarettes in April 2020) plan 08-19 FEN- ADA diet, npo after midnight PPX - heparin, pepcid CODE - FULL Dispo - observation for chest pain, atypical with high risk ACS fasting lipids cardiology consult patient refuses to stay to see Cardiology, until noon, INSISTS on leaving now, but agreees to call her PCP CAREN, WILL LEAVE AMA, her brother had CAD with stent s d/c planning 34 min Justifications for Admission Justifications for Admission Other Justification History of Present Illness History of Present Illness Identification/Chief Complaint Chief Complaint Chest pain Source Source: Patient History of Present Illness History of Present Illness Ms Song is a 59 year old female w/ PMHx HLD, HTN, DM2 with neuropathy, prior LLE DVT and bilateral PE on warfarin presents to ED, accompanied by her , c/o intermittent pressure in her chest with shortness of breath that is followed by nausea, weakness, brief vision loss and a sensation of weakness. She noted this began a little before noon today. She describes it as a sensation that she is falling downward on a rollercoaster and her stomach is rising. She denies any diaphoresis, vomiting, diarrhea, abdominal pain, fever, cough, or back pain. No recent sick contacts or travel. She quit smoking cigarettes 3 months ago and now uses tobacco vaporizer to "wean off" nicotine. She does note she has been having headaches recently, feels it is due to stress and nicotine withdrawal, no hx of seizures. She notes her broth and father both have HTN and AAA. She notes a normal cardiac stress test 10 years ago. Has never had a coronary angiogram. She follows with Dr. Dutta and has been compliant with her medications. 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 EKG at 1524 - appears to be sinus rhythm, rate 92bpm, normal axes, no ST segment or twave abnormalities EKG at 1549 - appears similar normal sinus rhythm rate 94bpm, , normal axes, no ST segment or twave abnormalities by my interpretation Chest radiograph with no acute abnormalities Labs with WBC 8.8, Hb 13.1, platelets 302, Na 141, K 4.6, BUN 13, Cr 0.7, glucose 99, CK 316, troponin 0, d dimer 1.22, INR 3.6 Admitted for further observation on telemetry to [facility]. Past Medical History Cardiovascular: HTN, Hyperlipidemia Pulmonary: Pulmonary embolus Endocrine: Diabetes Past Surgical History Past Surgical History: (x3), Hysterectomy Family History Family History: Coronary Artery Disease, Hypertension, Other (AAA) Social History Smoke: <1 pack per day (VAPES) ALCOHOL: rare Drugs: None Current Medications Current Medications Current Medications Magnesium Sulfate 50 ml @ 25 mls/hr 1X ONCE IV ; Start 08/18/20 at 19:45; Stop 08/18/20 at 21:44 Active Scripts Active Reported Metformin Hcl 500 Mg Tablet 500 Mg PO BIDWMEALS Glipizide 5 Mg Tablet 1 Tab PO BID Lantus Solostar (Insulin Glargine,Hum.rec.anlog) 100 Unit/1 Ml Insuln.pen 30 Unit SQ QHS Coumadin (Warfarin Sodium) 1 Mg Tablet 1 Mg PO DAILY Allergies Allergies: Coded Allergies: codeine (Verified Allergy, Intermediate, 05/25/18) ROS General: No: Chills, Night Sweats, Fatigue, Malaise, Appetite, Other PSYCHOLOGICAL ROS: YES: Concentration difficultie, Depression, Irritablity, Obsessive thoughts, Sleep disturbances; No: Anxiety, Behavioral Disorder, Decreased libido, Disorientation, Hallucinations, Hostility, Memory difficulties, Mood Swings, Physical abuse, Sexual abuse, Suicidal ideation, Other Eyes: No Blurry vision, No Decreased vision, No Double vision, No Dry eyes, No Excessive tearing, No Eye Pain, No Itchy Eyes, No Loss of vision, No Photophobia, No Scotomata, No Uses contacts, No Uses glasses, No Other HEENT: No: Heacaches, Visual Changes, Hearing change, Nasal congestion, Nasal discharge, Oral lesions, Sinus pain, Sore Throat, Epistaxis, Sneezing, Snoring, Tinnitus, Vertigo, Vocal changes, Other ALLERGY AND IMMUNOLOGY: No: Hives, Insect Bite Sensitivity, Itchy/Watery Eyes, Nasal Congestion, Post Nasal Drip, Seasonal Allergies, Other Hematological and Lymphatic: No: Bleeding Problems, Blood Clots, Blood Transfusions, Brusing, Night Sweats, Pallor, Swollen Lymph Nodes, Other ENDOCRINE: No: Breast Changes, Galactorrhea, Hair Pattern Changes, Hot Flashes, Malaise/lethargy, Mood Swings, Palpitations, Polydipsia/polyuria, Skin Changes, Temperature Intolerance, Unexpected Weight Changes, Other Breast: No New/Changing Breast Lumps, No Nipple changes, No Nipple discharge, No Other Respiratory: No: Cough, Hemoptysis, Orthopnea, Pleuritic Pain, Shortness of breath, SOB with excertion, Sputum Changes, Stridor, Tachypnea, Wheezing, Other Cardiovascular: No Chest Pain, No Palpitations, No Orthopnea, No Paroxysmal Noc. Dyspnea, No Edema, No Lt Headedness, No Other Gastrointestinal: Yes Nausea; No Vomiting, No Abdominal Pain, No Diarrhea, No Constipation, No Melena, No Hematochezia, No Other Genitourinary: No Dysuria, No Frequency, No Incontinence, No Hematuria, No Retention, No Discharge, No Urgency, No Pain, No Flank Pain, No Other, No , No , No , No , No , No , No Musculoskeletal: No Gait Disturbance, No Joint Pain, No Joint Stiffness, No Joint Swelling, No Muscle Pain, No Muscular Weakness, No Pain In:, No Swelling In:, No Other Neurological: No Behavorial Changes, No Bowel/Bladder ControlChng, No Confusion, No Dizziness, No Gait Disturbance, No Headaches, No Impaired Coord/balance, No Memory Loss, No Numbness/Tingling, No Seizures, No Speech Problems, No Tremors, No Visual Changes, No Weakness, No Other Skin: No Dry Skin, No Eczema, No Hair Changes, No Lumps, No Mole Changes, No Mottling, No Nail Changes, No Pruritus, No Rash, No Skin Lesion Changes, No Other, No Acne Vitals Vitals Vital Signs Date Time Temp Pulse Resp B/P (MAP) Pulse Ox O2 Delivery O2 Flow Rate FiO2 08/19/20 07:00 97.9 72 18 118/67 (84) 98 Room Air 97.9 Physical Exam General: Alert, Oriented X3, Cooperative, No acute distress Heart: Regular rate, No murmurs, Gallops Lungs: Clear Abdomen: Normal bowel sounds, Soft, No tenderness, No hepatosplenomegaly, No masses Extremities: No clubbing, No cyanosis, No edema, Normal pulses, No tenderness /swelling Skin: No rashes, No breakdown, No significant lesion Labs LABS PQRS Compliance statement: One or more of the following individualized dose reduction techniques were utilized for this examination: 1. Automated exposure control. 2. Adjustment of the mA and/or kV according to patient size. 3. Use of iterative reconstruction technique. Indication:Right lower quadrant pain for a few weeks. History of ulcerative colitis. TECHNIQUE: CT abdomen and pelvis without IV contrast with multiplanar reformats. COMPARISON: 12/25/2011 FINDINGS: Limited evaluation of solid abdominal and pelvic organs due to lack of IV contrast. Heart is normal in size. No pericardial or pleural effusion. Clear base. Noncontrast appearance of the liver, spleen, gallbladder, pancreas, right adrenal within normal limits. Left adrenal adenoma measuring 2.5 x 2.5 cm, previously 2.2 x 1.9 cm. Simple cyst in the left kidney measuring 1.3 cm. No nephrolithiasis or hydronephrosis. No enlarged retroperitoneal or pelvic adenopathy. No free pelvic fluid or ascites. Status post hysterectomy. No bowel obstruction. Moderate diffuse colonic stool burden. Normal appendix. Terminal ileum within normal limits. Urinary bladder demonstrates no radiopaque stones. No suspicious bony lesion. IMPRESSION: Limited evaluation of solid abdominal and pelvic organs due to lack of IV contrast. 1. Normal appendix. No bowel obstruction. 2. Slight interval increase in the size of left adrenal adenoma. Electronically signed by: Remi Riggs DO (05/25/2018 12:19 PM) [id number] DICTATED and SIGNED BY: REMI RIGGS DO DATE: 05/25/18 1214 XR CHEST 1V INDICATION: chest pain COMPARISON STUDY: None. FINDINGS: Lungs: Normal lung volume. No pulmonary mass or consolidation. The tracheobronchial tree and hilar structures are normal. Pleura: No pleural effusion or pneumothorax. Heart and Mediastinum: Cardiomegaly. The great vessels of the thorax are normal. IMPRESSION: No consolidation. Electronically signed by: Renan Campbell MD (08/18/2020 3:57 PM) [id number] FINAL DIAGNOSIS Problems Medical Problems: (1) Chest pain Status: Acute Brief Hospital Course Ms. Song is a 59 old [sex] who presented with [ ] Discharge Medications Current Medications Magnesium Sulfate 50 ml @ 25 mls/hr 1X ONCE IV Last administered on 08/18/20 21:32; Start 08/18/20 at 19:45; Stop 08/18/20 at 21:44; Status DC Cyclobenzaprine HCl (Flexeril) 10 mg HS PO Last administered on 08/18/20 21:23; Start 08/18/20 at 21:00 Gabapentin (Neurontin) 300 mg DAILY PO ; Start 08/19/20 at 09:00 Gabapentin (Neurontin) 600 mg HS PO Last administered on 08/18/20 21:23; Start 08/18/20 at 21:00 Insulin Glargine (Lantus Syringe) 16 unit QHS SQ Last administered on 08/18/20 21:30; Start 08/18/20 at 21:00 Atorvastatin Calcium (Lipitor) 80 mg QHS PO Last administered on 08/18/20 21:23; Start 08/18/20 at 21:00 Non-Formulary Medication (Warfarin Sodium ) 10 mg HS PO ; Start 08/18/20 at 21:00; Status UNV Acetaminophen (Tylenol) 650 mg PRN Q6HRS PRN PO MILD PAIN / TEMP > 100.3'F Last administered on 08/18/20at 21:24; Start 08/18/20 at 20:45 Ondansetron HCl (Zofran) 4 mg PRN Q4HRS PRN IVP NAUSEA/VOMITING; Start 08/18/20 at 20:45 Famotidine (Pepcid) 20 mg BID PO Last administered on 08/18/20at 21:23; Start 08/18/20 at 21:00 Aspirin (Medisas Aspirin) 325 mg 1X ONCE PO Last administered on 08/18/20at 21:23; Start 08/18/20 at 21:30; Stop 08/18/20 at 21:31; Status DC Aspirin (Medisas Aspirin) 325 mg DAILYWBKFT PO ; Start 08/19/20 at 08:00 Nitroglycerin (Nitrostat) 0.4 mg PRN Q5MIN PRN SL CHEST PAIN; Start 08/18/20 at 20:45 Warfarin Sodium (Coumadin Per Pharmacy) 1 each PRN DAILY PRN MC SEE COMMENTS Last administered on 08/18/20at 21:28; Start 08/18/20 at 21:30 Warfarin Sodium (Coumadin - No Dose Today) 1 each 1X WARF ONCE MC Last administered on 08/18/20at 21:25; Start 08/18/20 at 21:25; Stop 08/18/20 at 21:26; Status DC Insulin Human Lispro (HumaLOG) 0-9 UNITS TIDWMEALS SQ ; Start 08/19/20 at 08:00 Dextrose (Dextrose 50%-Water Syringe) 12.5 gm PRN Q15MIN PRN IV SEE COMMENTS; Start 08/18/20 at 23:45 Zolpidem Tartrate (Ambien) 5 mg PRN QHS PRN PO INSOMNIA; Start 08/18/20 at 23:45 Active Scripts Active Reported Trulicity (Dulaglutide) 0.75 Mg/0.5 Ml Pen.injctr Unknown Dose SQ WEEKLY Gabapentin (Gabapentin) 300 Mg Capsule 600 Mg PO HS Gabapentin (Gabapentin) 300 Mg Capsule 300 Mg PO DAILY Cyclobenzaprine Hcl 10 Mg Tablet 10 Mg PO HS Crestor (Rosuvastatin Calcium) 40 Mg Tablet 40 Mg PO HS Lantus Solostar (Insulin Glargine,Hum.rec.anlog) 100 Unit/1 Ml Insuln.pen 10 U nit SQ DAILYAC Lantus Solostar (Insulin Glargine,Hum.rec.anlog) 100 Unit/1 Ml Insuln.pen 16 Unit SQ HS Warfarin Sodium 10 Mg Tablet 10 Mg PO HS Metformin Hcl 500 Mg Tablet 500 Mg PO BIDWMEALS Vital Signs Vital Signs Date Time Temp Pulse Resp B/P (MAP) Pulse Ox O2 Delivery O2 Flow Rate FiO2 08/19/20 08:00 Room Air 08/19/20 07:00 97.9 72 18 118/67 (84) 98 97.9 Labs Laboratory Tests Test 08/18/20 15:40 08/18/20 17:20 08/18/20 17:56 08/18/20 18:00 White Blood Count 8.8 x10^3/uL (4.0-11.0) Red Blood Count 3.88 x10^6/uL (3.50-5.40) Hemoglobin 13.1 g/dL (12.0-15.5) Hematocrit 37.7 % (36.0-47.0) Mean Corpuscular Volume 97 fL (79-100) Mean Corpuscular Hemoglobin 34 pg (25-35) Mean Corpuscular Hemoglobin Concent 35 g/dL (31-37) Red Cell Distribution Width 13.1 % (11.5-14.5) Platelet Count 302 x10^3/uL (140-400) Neutrophils (%) (Auto) 59 % (31-73) Lymphocytes (%) (Auto) 27 % (24-48) Monocytes (%) (Auto) 7 % (0-9) Eosinophils (%) (Auto) 6 % (0-3) Basophils (%) (Auto) 1 % (0-3) Neutrophils # (Auto) 5.2 x10^3/uL (1.8-7.7) Lymphocytes # (Auto) 2.4 x10^3/uL (1.0-4.8) Monocytes # (Auto) 0.6 x10^3/uL (0.0-1.1) Eosinophils # (Auto) 0.5 x10^3/uL (0.0-0.7) Basophils # (Auto) 0.1 x10^3/uL (0.0-0.2) Sodium Level 141 mmol/L (136-145) Potassium Level 4.6 mmol/L (3.5-5.1) Chloride Level 105 mmol/L (98-107) Carbon Dioxide Level 24 mmol/L (21-32) Anion Gap 12 (6-14) Blood Urea Nitrogen 13 mg/dL (7-20) Creatinine 0.7 mg/dL (0.6-1.0) Estimated GFR (Cockcroft-Gault) 85.6 BUN/Creatinine Ratio 19 (6-20) Glucose Level 99 mg/dL (70-99) Calcium Level 9.1 mg/dL (8.5-10.1) Magnesium Level 1.8 mg/dL (1.8-2.4) Total Bilirubin 0.5 mg/dL (0.2-1.0) Aspartate Amino Transf (AST/SGOT) 26 U/L (15-37) Alanine Aminotransferase (ALT/SGPT) 24 U/L (14-59) Alkaline Phosphatase 86 U/L (46-116) Creatine Kinase 316 U/L (26-192) Creatine Kinase MB (Mass) 1.5 ng/mL (0.0-3.6) Creatine Kinase MB Relative Index 0.5 % (0-4) Troponin I Quantitative < 0.017 ng/mL (0.000-0.055) < 0.017 ng/mL (0.000-0.055) Total Protein 7.7 g/dL (6.4-8.2) Albumin 3.6 g/dL (3.4-5.0) Albumin/Globulin Ratio 0.9 (1.0-1.7) Lipase 347 U/L (73-393) Urine Color Yellow Urine Clarity Cloudy Urine pH 6.0 (<5.0-8.0) Urine Specific [place] 1.015 (1.000-1.030) Urine Protein Negative mg/dL (NEG-TRACE) Urine Glucose (UA) Negative mg/dL (NEG) Urine Ketones (Stick) Negative mg/dL (NEG) Urine Blood Large (NEG) Urine Nitrite Negative (NEG) Urine Bilirubin Negative (NEG) Urine Urobilinogen Dipstick 0.2 mg/dL (0.2 mg/dL) Urine Leukocyte Esterase Trace (NEG) Urine RBC 20-40 /HPF (0-2) Urine WBC Occ /HPF (0-4) Urine Squamous Epithelial Cells Many /LPF Urine Bacteria Many /HPF (0-FEW) Urine Mucus Mod /LPF Prothrombin Time 36.0 SEC (11.7-14.0) Prothromb Time International Ratio 3.6 (0.8-1.1) D-Dimer (Jen) 1.22 ug/mlFEU (0.00-0.50) Test 08/18/20 21:25 08/19/20 00:40 08/19/20 07:28 Glucose (Fingerstick) 171 mg/dL (70-99) 126 mg/dL (70-99) Troponin I Quantitative < 0.017 ng/mL (0.000-0.055) Laboratory Tests Test 08/18/20 15:40 08/18/20 17:20 08/18/20 17:56 08/18/20 18:00 White Blood Count 8.8 x10^3/uL (4.0-11.0) Red Blood Count 3.88 x10^6/uL (3.50-5.40) Hemoglobin 13.1 g/dL (12.0-15.5) Hematocrit 37.7 % (36.0-47.0) Mean Corpuscular Volume 97 fL (79-100) Mean Corpuscular Hemoglobin 34 pg (25-35) Mean Corpuscular Hemoglobin Concent 35 g/dL (31-37) Red Cell Distribution Width 13.1 % (11.5-14.5) Platelet Count 302 x10^3/uL (140-400) Neutrophils (%) (Auto) 59 % (31-73) Lymphocytes (%) (Auto) 27 % (24-48) Monocytes (%) (Auto) 7 % (0-9) Eosinophils (%) (Auto) 6 % (0-3) Basophils (%) (Auto) 1 % (0-3) Neutrophils # (Auto) 5.2 x10^3/uL (1.8-7.7) Lymphocytes # (Auto) 2.4 x10^3/uL (1.0-4.8) Monocytes # (Auto) 0.6 x10^3/uL (0.0-1.1) Eosinophils # (Auto) 0.5 x10^3/uL (0.0-0.7) Basophils # (Auto) 0.1 x10^3/uL (0.0-0.2) Sodium Level 141 mmol/L (136-145) Potassium Level 4.6 mmol/L (3.5-5.1) Chloride Level 105 mmol/L (98-107) Carbon Dioxide Level 24 mmol/L (21-32) Anion Gap 12 (6-14) Blood Urea Nitrogen 13 mg/dL (7-20) Creatinine 0.7 mg/dL (0.6-1.0) Estimated GFR (Cockcroft-Gault) 85.6 BUN/Creatinine Ratio 19 (6-20) Glucose Level 99 mg/dL (70-99) Calcium Level 9.1 mg/dL (8.5-10.1) Magnesium Level 1.8 mg/dL (1.8-2.4) Total Bilirubin 0.5 mg/dL (0.2-1.0) Aspartate Amino Transf (AST/SGOT) 26 U/L (15-37) Alanine Aminotransferase (ALT/SGPT) 24 U/L (14-59) Alkaline Phosphatase 86 U/L (46-116) Creatine Kinase 316 U/L (26-192) Creatine Kinase MB (Mass) 1.5 ng/mL (0.0-3.6) Creatine Kinase MB Relative Index 0.5 % (0-4) Troponin I Quantitative < 0.017 ng/mL (0.000-0.055) < 0.017 ng/mL (0.000-0.055) Total Protein 7.7 g/dL (6.4-8.2) Albumin 3.6 g/dL (3.4-5.0) Albumin/Globulin Ratio 0.9 (1.0-1.7) Lipase 347 U/L (73-393) Urine Color Yellow Urine Clarity Cloudy Urine pH 6.0 (<5.0-8.0) Urine Specific [place] 1.015 (1.000-1.030) Urine Protein Negative mg/dL (NEG-TRACE) Urine Glucose (UA) Negative mg/dL (NEG) Urine Ketones (Stick) Negative mg/dL (NEG) Urine Blood Large (NEG) Urine Nitrite Negative (NEG) Urine Bilirubin Negative (NEG) Urine Urobilinogen Dipstick 0.2 mg/dL (0.2 mg/dL) Urine Leukocyte Esterase Trace (NEG) Urine RBC 20-40 /HPF (0-2) Urine WBC Occ /HPF (0-4) Urine Squamous Epithelial Cells Many /LPF Urine Bacteria Many /HPF (0-FEW) Urine Mucus Mod /LPF Prothrombin Time 36.0 SEC (11.7-14.0) Prothromb Time International Ratio 3.6 (0.8-1.1) D-Dimer (Jen) 1.22 ug/mlFEU (0.00-0.50) Test 08/18/20 21:25 08/19/20 00:40 08/19/20 07:28 Glucose (Fingerstick) 171 mg/dL (70-99) 126 mg/dL (70-99) Troponin I Quantitative < 0.017 ng/mL (0.000-0.055) Allergies Allergies Coded Allergies Type Severity Reaction Last Updated Verified codeine Allergy Intermediate 05/25/18 Yes Justicifation of Admission Dx: Justifications for Admission: Justification of Admission Dx: Yes JAZZMINE MELENDREZ MD August 19, 2020 10:02
[2020-08-19] MEDS ORDERED: FAMO20TA5 PO (10:05)
[2020-08-19] MEDS ORDERED: ATOR40TA59 PO (10:05)
[2020-08-19] MEDS ORDERED: ACET325T21 PO (10:05)
[2020-08-19] MEDS ORDERED: NITR0.4T24 SL (10:05)
[2020-08-19] MEDS ORDERED: INSU100V35 SQ (10:05)
[2020-08-19] MEDS ORDERED: ASPI325T8 PO (10:05)
--- NOTE | 2020-08-19 10:06 | DISCH ---
DISCHARGE INSTRUCTIONS Condition on Discharge Condition on Discharge: Guarded Activity After Discharge Activity Instructions for Disc: Activity as tolerated Lifting Instructions after Dis: No heavy lifting, No pulling or pushing Driving Instructions after Dis: Do not drive Diet after Discharge Diet after Discharge: Cardiac, Diabetic No Calorie Level Liquid Texture: Thin Liquid Checks after Discharge Checks after discharge: Check blood press - daily Contacting the DRRamona after DC Call your doctor for: If your condition worsens Follow-Up Follow up with: PCP TOMORROW BY PHONE, CARDIOLOGY CAREN Treatment/Equipment after DC Adaptive Equipment Issued: None JAZZMINE MELENDREZ MD August 19, 2020 10:06
[2020-08-19 11:13] LABS: CHOLESTEROL/HDL RATIO 2.1
[2020-08-19 11:17] LABS: PROTHROMBIN TIME PATIENT 30.5 SEC (11.7-14.0)
== END 2020-08-19 10:27 | disposition left against medical advice (07) ==
LOC: ER 15:16 → 2 NORTH 17:20
PROVIDERS: ADMIT Internal Medicine; ATTEND Internal Medicine
DX: R07.89 Other chest pain (principal); I10 Essential (primary) hypertension; E11.40 Type 2 diabetes mellitus with diabetic neuropathy, unspecified; E78.00 Pure hypercholesterolemia, unspecified; E78.5 Hyperlipidemia, unspecified; G44.209 Tension-type headache, unspecified, not intractable; K21.9 Gastro-esophageal reflux disease without esophagitis; H54.7 Unspecified visual loss; F17.213 Nicotine dependence, cigarettes, with withdrawal; Z79.01 Long term (current) use of anticoagulants; Z86.711 Personal history of pulmonary embolism; Z86.718 Personal history of other venous thrombosis and embolism; Z90.710 Acquired absence of both cervix and uterus; Z98.891 History of uterine scar from previous surgery; Z79.4 Long term (current) use of insulin; Z79.899 Other long term (current) drug therapy; Z98.890 Other specified postprocedural states
CPT/HCPCS: 36415; 71045; 80053; 80061; 81001; 82553; 82962; 83690; 83735; 84484; 85025; 85379; 85610; 87086; 93005; 96365; 96366; 96372; 99285; G0378; J1815; J3475; G0379